=== PATIENT | female | born 1945 | race Caucasian/White ===

== ENCOUNTER 2017-03-12 08:57 | Day surgery (SDC) | payer MEDICAID, MEDICARE ==
[~2017-03-12 08:57] MED LIST: Cefuroxime 10 MG/ML SYRINGE EYERT SCH; Lidocaine 1% PF 2 ML SDV INJECT SCH; Pilocarpine 4% Ophth Soln 15 ML Bot EYERT SCH
[2017-03-12] MEDS: Polymyxin B/Trimethoprim 10 ML Bottle EYERT SCH ×3 (09:42→11:18)
[2017-03-12] MEDS: Brimonidine 0.2% Ophth Soln 5 ML Bottle EYERT SCH ×3 (09:47→11:18)
[2017-03-12] MEDS: Phenylephrine 2.5% Ophth Soln 2 ML Bot EYERT SCH ×5 (09:52→10:55)
--- NOTE | 2017-03-12 10:10 | PCM.PREANE ---
Preanesthetic Assessment - Procedure Proposed Procedure: Right eye cataract extraction with IOL - Anesthesia/Transfusion/Family Hx Anesthesia History: Prior Anesthesia Reaction Type of Anesthesia Reaction: Excessive Somnolence (from appendectomy 50+ years ago) Family History of Anesthesia Reaction: No Transfusion History: No Prior Transfusion(s) - Review of Systems General: No Symptoms Pulmonary: Shortness of Breath Cardiovascular: Other (HTN) Gastrointestinal: No Symptoms Neurological: No Symptoms Other: Reports: None - Physical Assessment NPO Status Date: 03/11/17 NPO Status Time: 22:00 O2 Sat by Pulse Oximetry: 93 Respiratory Rate: 20 Vital Signs: Last Vital Signs Temp 36.7 C 03/12/17 09:35 Pulse 64 03/12/17 09:35 Resp 20 03/12/17 09:35 BP 153/73 H 03/12/17 09:35 Pulse Ox 93 L 03/12/17 09:35 Height: 1.5 m Weight: 102.965 kg ASA Class: 2 Mental Status: Alert & Oriented x3 Dentition: Reports: Missing Tooth/Teeth (edentulous) Thyro-Mental Finger Breadths: 3 Mouth Opening Finger Breadths: 3 ROM/Head Extension: Full Lungs: Clear to Auscultation, Normal Respiratory Effort Cardiovascular: Regular Rate, Regular Rhythm - Allergies Allergies/Adverse Reactions: Allergies Allergy/AdvReac Type Severity Reaction Status Date / Time coconut Allergy Cannot Verified 03/11/17 12:02 Remember perfume Allergy Cannot Verified 03/11/17 12:02 Remember pollen extracts Allergy Cannot Verified 03/11/17 12:02 Remember dust Allergy Cannot Uncoded 03/11/17 12:02 Remember hayfever Allergy Cannot Uncoded 03/11/17 12:02 Remember - Blood Blood Available: No Product(s) Available: None - Anesthesia Plan Pre-Op Medication Ordered: None - Acknowledgements Anesthesia Type Planned: MAC Pt an Appropriate Candidate for the Planned Anesthesia: Yes Alternatives and Risks of Anesthesia Discussed w Pt/Guardian: Yes Pt/Guardian Understands and Agrees with Anesthesia Plan: Yes PreAnesthesia Questionnaire - SUBSTANCE USE Smoking Status *Q: Current Every Day Smoker (0.5ppd for 20 years) Tobacco Use Within Last Twelve Months: Cigarettes Second Hand Smoke Exposure: No Recreational Drug Use History: No - HOME MEDS Home Medications: Home Meds Aspirin [Halfprin] 81 mg PO DAILY 03/11/17 [History] Levothyroxine [Synthroid] 50 mcg PO DAILY 03/11/17 [History] Lisinopril [Lisinopril] 20 mg PO DAILY 03/11/17 [History] Sertraline HCl [Sertraline HCl] 50 mg PO DAILY 03/11/17 [History] - CURRENT (IN HOUSE) MEDS Current Meds: Current Medications Brimonidine Tartrate (Alphagan 0.2% Ophth Soln) 0 ml EYERT ASDIRECTED MELY Stop: 03/12/17 18:00 Last Admin: 03/12/17 09:47 Dose: 1 drop Cefuroxime Sodium (Zinacef) 0 mg EYERT ASDIRECTED MELY Stop: 03/12/17 18:00 Lidocaine HCl (Xylocaine-Mpf 1%) 10 ml INJECT ASDIRECTED MELY Stop: 03/12/17 18:00 Phenylephrine HCl (Conner-Synephrine 2.5% Ophth Soln) 0 ml EYERT ASDIRECTED MELY Stop: 03/12/17 18:00 Last Admin: 03/12/17 09:52 Dose: 1 drop Pilocarpine HCl (Pilocar 4% Ophth Soln) 0 ml EYERT ASDIRECTED MELY Stop: 03/12/17 18:00 Polymyxin/Trimethoprim Sulfate (Polytrim Ophth Soln) 0 ml EYERT ASDIRECTED MELY Stop: 03/12/17 18:00 Last Admin: 03/12/17 09:42 Dose: 1 drop Tetracaine HCl (Tetracaine 0.5% Steri-Unit Angy) 0 ml EYERT ASDIRECTED MELY Stop: 03/12/17 18:00 Tropicamide (Mydriacyl 1% Ophth Soln) 0 ml EYERT ASDIRECTED MELY Stop: 03/12/17 18:00 Last Admin: 03/12/17 09:57 Dose: 1 drop
[2017-03-12] MEDS: Tetracaine HCl/PF 0.5% 4 ML Bottle EYERT SCH ×4 (10:48→11:04)
--- NOTE | 2017-03-12 11:20 | PCM48HPAN ---
Post Anesthesia Note - EVALUATION WITHIN 48HRS OF ANESTHETIC Vital Signs in Normal Range: Yes Patient Participated in Evaluation: Yes Respiratory Function Stable: Yes Airway Patent: Yes Cardiovascular Function Stable: Yes Hydration Status Stable: Yes Pain Control Satisfactory: Yes Nausea and Vomiting Control Satisfactory: Yes Mental Status Recovered: Yes
== END 2017-03-12 11:30 | disposition home or self-care (01) ==
LOC: JD.SDS 08:57
PROVIDERS: ATTEND Ophthalmology
DX: H25.89 Other age-related cataract (principal); H16.103 Unspecified superficial keratitis, bilateral; H16.223 Keratoconjunctivitis sicca, not specified as Sjogren's, bilateral; H02.831 Dermatochalasis of right upper eyelid; H02.834 Dermatochalasis of left upper eyelid; H21.81 Floppy iris syndrome; I10 Essential (primary) hypertension; F17.210 Nicotine dependence, cigarettes, uncomplicated; F41.9 Anxiety disorder, unspecified; Z90.49 Acquired absence of other specified parts of digestive tract; Z98.890 Other specified postprocedural states; Z79.82 Long term (current) use of aspirin; Z79.899 Other long term (current) drug therapy; Z91.018 Allergy to other foods; Z91.048 Other nonmedicinal substance allergy status
CPT/HCPCS: 66984; A9270; C1780; J0697

== ENCOUNTER 2017-04-23 07:59 | Day surgery (SDC) | payer MEDICARE, MEDICAID ==
[~2017-04-23 07:59] MED LIST changes: +Cefuroxime 10 MG/ML SYRINGE EYELF SCH; -Cefuroxime 10 MG/ML SYRINGE EYERT SCH; +Pilocarpine 4% Ophth Soln 15 ML Bot EYELF SCH; -Pilocarpine 4% Ophth Soln 15 ML Bot EYERT SCH
[2017-04-23] MEDS: Polymyxin B/Trimethoprim 10 ML Bottle EYELF SCH ×3 (08:12→09:58)
[2017-04-23] MEDS: Brimonidine 0.2% Ophth Soln 5 ML Bottle EYELF SCH ×3 (08:16→09:58)
[2017-04-23] MEDS: Phenylephrine 2.5% Ophth Soln 2 ML Bot EYELF SCH ×5 (08:19→09:44)
--- NOTE | 2017-04-23 08:55 | PCM.PREANE ---
Preanesthetic Assessment - Anesthesia/Transfusion/Family Hx Anesthesia History: Prior Anesthesia Without Reaction Family History of Anesthesia Reaction: No Transfusion History: No Prior Transfusion(s) Intubation History: Unknown - Review of Systems General: No Symptoms Pulmonary: Shortness of Breath, Cough Cardiovascular: No Symptoms (HTN), Palpitations (only with anxiety), Dyspnea on Exertion Gastrointestinal: No Symptoms (GERD) Neurological: No Symptoms Other: Reports: Thyroid Problems (hypothyroid), Anxiety - Physical Assessment NPO Status Date: 04/22/17 NPO Status Time: 21:30 Pulse: 66 O2 Sat by Pulse Oximetry: 92 Respiratory Rate: 20 Blood Pressure: 157/79 Temperature: 36.4 C Vital Signs: Last Vital Signs Temp 36.4 C 04/23/17 08:05 Pulse 66 04/23/17 08:05 Resp 20 04/23/17 08:05 BP 157/79 H 04/23/17 08:05 Pulse Ox 92 L 04/23/17 08:05 Height: 1.5 m Weight: 90.718 kg ASA Class: 3 Mental Status: Alert & Oriented x3 Airway Class: Mallampati = 2 Dentition: Reports: Dentures Thyro-Mental Finger Breadths: 3 Mouth Opening Finger Breadths: 3 ROM/Head Extension: Full Lungs: Clear to Auscultation, Normal Respiratory Effort Cardiovascular: Regular Rate, Regular Rhythm, No Murmurs - Allergies Allergies/Adverse Reactions: Allergies Allergy/AdvReac Type Severity Reaction Status Date / Time coconut Allergy Cannot Verified 04/22/17 15:04 Remember perfume Allergy Cannot Verified 04/22/17 15:04 Remember pollen extracts Allergy Cannot Verified 04/22/17 15:04 Remember dust Allergy Cannot Uncoded 04/22/17 15:04 Remember hayfever Allergy Cannot Uncoded 04/22/17 15:04 Remember - Anesthesia Plan Pre-Op Medication Ordered: None - Acknowledgements Anesthesia Type Planned: MAC Pt an Appropriate Candidate for the Planned Anesthesia: Yes Alternatives and Risks of Anesthesia Discussed w Pt/Guardian: Yes Pt/Guardian Understands and Agrees with Anesthesia Plan: Yes PreAnesthesia Questionnaire - SUBSTANCE USE Smoking Status *Q: Current Every Day Smoker (0.5ppd for 20 years) Tobacco Use Within Last Twelve Months: Cigarettes Second Hand Smoke Exposure: No Recreational Drug Use History: No - HOME MEDS Home Medications: Home Meds Aspirin [Halfprin] 81 mg PO DAILY 03/11/17 [History] Levothyroxine [Synthroid] 50 mcg PO DAILY 03/11/17 [History] Lisinopril [Lisinopril] 20 mg PO DAILY 03/11/17 [History] Sertraline HCl [Sertraline HCl] 50 mg PO DAILY 03/11/17 [History] - CURRENT (IN HOUSE) MEDS Current Meds: Current Medications Brimonidine Tartrate (Alphagan 0.2% Ophth Soln) 1 ml EYELF ASDIRECTED MELY Stop: 04/23/17 18:00 Last Admin: 04/23/17 08:16 Dose: 1 drop Cefuroxime Sodium (Zinacef) 0 mg EYELF ASDIRECTED MELY Stop: 04/23/17 18:00 Lidocaine HCl (Xylocaine-Mpf 1%) 10 ml INJECT ASDIRECTED MELY Stop: 04/23/17 18:00 Phenylephrine HCl (Conner-Synephrine 2.5% Ophth Soln) 0 ml EYELF ASDIRECTED MELY Stop: 04/23/17 18:00 Last Admin: 04/23/17 08:43 Dose: 1 drop Pilocarpine HCl (Pilocar 4% Ophth Soln) 0 ml EYELF ASDIRECTED MELY Stop: 04/23/17 18:00 Polymyxin/Trimethoprim Sulfate (Polytrim Ophth Soln) 0 ml EYELF ASDIRECTED MELY Stop: 04/23/17 18:00 Last Admin: 04/23/17 08:12 Dose: 1 drop Tetracaine HCl (Tetracaine 0.5% Steri-Unit Angy) 0 ml EYELF ASDIRECTED MELY Stop: 04/23/17 18:00 Tropicamide (Mydriacyl 1% Ophth Soln) 0 ml EYELF ASDIRECTED MELY Stop: 04/23/17 18:00 Last Admin: 04/23/17 08:47 Dose: 1 drop
[2017-04-23] MEDS: Tetracaine HCl/PF 0.5% 4 ML Bottle EYELF SCH ×2 (09:37→09:47)
== END 2017-04-23 10:14 | disposition home or self-care (01) ==
LOC: JD.SDS 07:59
PROVIDERS: ATTEND Ophthalmology
DX: H25.092 Other age-related incipient cataract, left eye (principal); H21.81 Floppy iris syndrome; H21.40 Pupillary membranes, unspecified eye; J30.1 Allergic rhinitis due to pollen; F41.9 Anxiety disorder, unspecified; F32.9 Major depressive disorder, single episode, unspecified; F17.210 Nicotine dependence, cigarettes, uncomplicated; Z91.018 Allergy to other foods; Z91.048 Other nonmedicinal substance allergy status; Z79.82 Long term (current) use of aspirin; Z79.899 Other long term (current) drug therapy; Z98.890 Other specified postprocedural states; Z96.1 Presence of intraocular lens; Z98.41 Cataract extraction status, right eye
CPT/HCPCS: A9270-GY; C1780

== ENCOUNTER 2024-07-25 12:54 | Inpatient (IN) | payer MEDICARE, MEDICAID ==
[2024-07-25 14:19] LABS: APPEARANCE,URINE SLT CLOUDY (Clear); BILIRUBIN,URINE 1+ (Negative); COLOR,URINE DARK YELLOW (Yellow); GLUCOSE,URINE NEGATIVE (Negative); KETONES,URINE 1+ (Negative); LEUKOCYTE ESTERASE,URINE TRACE (Negative); NITRITE,URINE POSITIVE (Negative); OCCULT BLOOD,URINE 1+ (Negative); PROTEIN,URINE 2+ (Negative)
[2024-07-25 14:21] LABS: BASOPHILS PERCENT AUTO 0.1 % (0.0-1.0); EOSINOPHILS PERCENT AUTO 0.3 % (0.0-6.0); HEMATOCRIT 39.5 % (37.0-47.0); IMMATURE GRAN ABSOLUTE AUTO 0.13 K/mm3 (0.00-0.05); IMMATURE GRAN PERCENT AUTO 0.8 % (0.0-0.4); LYMPHOCYTES ABSOLUTE AUTO 4.6 K/mm3 (1.0-4.8); LYMPHOCYTES PERCENT AUTO 28.8 % (24.0-44.0); MEAN CORPUSCULAR HEMOGLOBIN 31.2 pg (28.0-32.0); MEAN CORPUSCULAR HGB CONC 32.9 g/dl (32.0-36.0); MEAN CORPUSCULAR VOLUME 94.7 fl (83.0-99.0); MEAN PLATELET VOLUME 10.8 fl (9.4-12.3); MONOCYTES ABSOLUTE AUTO 0.5 K/mm3 (0.0-0.8); MONOCYTES PERCENT AUTO 3.2 % (0.0-8.0); NEUTROPHILS ABSOLUTE AUTO 10.6 K/mm3 (1.8-7.7); NEUTROPHILS PERCENT AUTO 66.8 % (41.0-71.0); NRBC ABSOLUTE 0.03 (0.00-0.02); NRBC PERCENT 0.2 % (0.0-0.2); PLATELET COUNT,PLT 212 K/mm3 (150-400); RED BLOOD CELL COUNT 4.17 M/mm3 (4.10-5.30); WHITE BLOOD CELL COUNT,WBC 15.88 K/mm3 (3.9-11.3)
[2024-07-25 14:27] LABS: BACTERIA,URINE MANY /hpf (FEW); EPITHELIAL CELLS,URINE 0-5 /hpf (0-5); MUCUS,URINE NOT SEEN /hpf (FEW); RBC,URINE 0-5 /hpf (0-5)
[2024-07-25 14:28] LABS: HYALINE CASTS,URINE 0-5 /lpf (0-5)
[2024-07-25] MEDS: Sodium Chloride 0.9% 1,000 ML IV ONE ×2 (14:39→17:28)
[2024-07-25] MEDS: Piperacillin/Tazobactam 4.5 GM in Sodium Chloride 0.9% 100 ML IV ONE (14:42)
[2024-07-25] MEDS: Sodium Chloride 0.9% 10 ML Syringe FLUSH PRN (14:45)
[2024-07-25 14:56] LABS: A/G RATIO 0.3 (1-2); ALBUMIN 1.4 g/dl (3.4-5.0); ALKALINE PHOSPHATASE 114 U/L (46-116); ANION GAP 10.2 (5-15); ASPARTATE AMNIOTRANSFERASE,AST 29 U/L (15-37); BILIRUBIN TOTAL 1.7 mg/dL (0.2-1.0); BLOOD UREA NITROGEN,BUN 14 mg/dL (7-18); BUN/CREATININE RATIO 15.6 (14-18); C-REACTIVE PROTEIN 16.82 mg/dL (<0.30); CALCIUM 8.2 mg/dL (8.5-10.1); CARBON DIOXIDE,CO2 30 mEq/L (21-32); CHLORIDE,CL 101 mEq/L (98-107); CREATININE 0.9 mg/dL (0.55-1.02); ESTIMATED GFR 66 mL/min (>60); GLUCOSE RANDOM 136 mg/dL (70-99); MAGNESIUM 1.6 mg/dL (1.8-2.4); POTASSIUM,K 3.2 mEq/L (3.5-5.1); PROTEIN TOTAL,TP 6.9 g/dl (6.4-8.2); SODIUM,NA 138 mEq/L (136-145)
[2024-07-25 15:10] LABS: TSH 3.963 uIU/mL (0.358-3.74)
[2024-07-25 15:25] LABS: LACTIC ACID 2.6 mmol/L (0.4-2.0)
[2024-07-25 15:28] LABS: ALANINE AMINOTRANSFERASE,ALT 6 U/L (14-59)
[2024-07-25 15:56] LABS: T4 FREE 2.02 ng/dL (0.76-1.46)
[2024-07-25] MEDS: Potassium Chloride 10 MEQ in Premix Bag 1 BAG IV ONE (17:28)
[2024-07-25] MEDS: Potassium Chloride 20 MEQ Tab.ER PO ONE (17:28)
[2024-07-25 18:22] LABS: SLIDE REVIEW ABNORMAL SMEAR
[2024-07-25] MEDS: Piperacillin/Tazobactam 4.5 GM in Sodium Chloride 0.9% 100 ML IV SCH ×2 (19:56→20:29)
[2024-07-26] MEDS ORDERED: Lactated Ringers 1,000 ML IV SCH (08:45)
[2024-07-26] MEDS ORDERED: Ondansetron 4 MG/2 ML SDV IV PRN (10:21)
[2024-07-26] MEDS: Sodium Chloride 0.9% 1,000 ML IV SCH (11:46)
[2024-07-26] MEDS: Albuterol/Ipratropium 3.0-0.5 MG/3 ML Neb Soln NEB SCH (11:46)
[2024-07-26] MEDS: Nystatin Crm 30 GM Tube TOP SCH (22:06)
[2024-07-27] MEDS: Sodium Chloride 0.9% 1,000 ML IV SCH (04:07)
[2024-07-27 05:31] LABS: HEMATOCRIT 33.2 % (37.0-47.0); MEAN CORPUSCULAR HEMOGLOBIN 31.7 pg (28.0-32.0); MEAN CORPUSCULAR HGB CONC 32.8 g/dl (32.0-36.0); MEAN CORPUSCULAR VOLUME 96.5 fl (83.0-99.0); MEAN PLATELET VOLUME 10.9 fl (9.4-12.3); PLATELET COUNT,PLT 161 K/mm3 (150-400); RED BLOOD CELL COUNT 3.44 M/mm3 (4.10-5.30); WHITE BLOOD CELL COUNT,WBC 10.73 K/mm3 (3.9-11.3)
[2024-07-27 05:34] LABS: HEMOGLOBIN 10.9 gm/dl (12.0-16.0)
[2024-07-27 05:46] LABS: A/G RATIO 0.2 (1-2); ALANINE AMINOTRANSFERASE,ALT 6 U/L (14-59); ALKALINE PHOSPHATASE 91 U/L (46-116); ANION GAP 8.4 (5-15); ASPARTATE AMNIOTRANSFERASE,AST 22 U/L (15-37); BILIRUBIN TOTAL 1.2 mg/dL (0.2-1.0); BLOOD UREA NITROGEN,BUN 9 mg/dL (7-18); BUN/CREATININE RATIO 11.3 (14-18); C-REACTIVE PROTEIN 12.38 mg/dL (<0.30); CALCIUM 7.5 mg/dL (8.5-10.1); CARBON DIOXIDE,CO2 30 mEq/L (21-32); CHLORIDE,CL 104 mEq/L (98-107); CREATININE 0.8 mg/dL (0.55-1.02); ESTIMATED GFR 76 mL/min (>60); GLUCOSE RANDOM 110 mg/dL (70-99); PROTEIN TOTAL,TP 5.5 g/dl (6.4-8.2); SODIUM,NA 140 mEq/L (136-145)
[2024-07-27 05:59] LABS: POTASSIUM,K 2.4 mEq/L (3.5-5.1)
[2024-07-27 06:01] LABS: HEPATITIS C AB NON-REACTIVE (Non-React)
[2024-07-27 06:02] LABS: HIV RAPID SCREEN RLFX COMFIRM NON-REACTIVE (Non-React)
[2024-07-27] MEDS: Potassium Chloride 20 MEQ Tab.ER PO ONE (06:24)
[2024-07-27] MEDS: Magnesium Sulfat/D5W 1GM/100ML 1 GM in Premix Bag 1 BAG IV SCH (06:27)
[2024-07-27] MEDS: Potassium Chloride 10 MEQ in Premix Bag 1 BAG IV SCH ×2 (06:28→16:58)
[2024-07-27] MEDS: Acetaminophen 325 MG Tab PO PRN (08:29)
[2024-07-27] MEDS: Enoxaparin 40 MG/0.4 ML Syringe SUBCUT SCH (08:53)
[2024-07-27 10:11] LABS: MAGNESIUM 1.4 mg/dL (1.8-2.4); PHOSPHORUS 2.5 mg/dL (2.6-4.7)
[2024-07-27] MEDS ORDERED: Potassium Phosphates 30 MMOLE in Sodium Chloride 0.9% 500 ML IV ONE (12:00)
[2024-07-27] MEDS: Piperacillin/Tazobactam 4.5 GM in Sodium Chloride 0.9% 100 ML IV SCH (13:05)
[2024-07-27] MEDS: Magnesium Sulf/Wat 4 GM/50 mL 4 GM in Premix Bag 1 BAG IV ONE (13:06)
[2024-07-27] MEDS: Potassium Phosphates 15 MMOLE in Sodium Chloride 0.9% 250 ML IV ONE (14:26)
[2024-07-28 04:45] LABS: HEMATOCRIT 32.7 % (37.0-47.0); HEMOGLOBIN 11.1 gm/dl (12.0-16.0); MEAN CORPUSCULAR HEMOGLOBIN 31.7 pg (28.0-32.0); MEAN CORPUSCULAR HGB CONC 33.9 g/dl (32.0-36.0); MEAN CORPUSCULAR VOLUME 93.4 fl (83.0-99.0); PLATELET COUNT,PLT 189 K/mm3 (150-400); WHITE BLOOD CELL COUNT,WBC 11.29 K/mm3 (3.9-11.3)
[2024-07-28 05:07] LABS: A/G RATIO 0.2 (1-2); ALBUMIN 0.9 g/dl (3.4-5.0); ANION GAP 12.5 (5-15); BILIRUBIN TOTAL 0.9 mg/dL (0.2-1.0); C-REACTIVE PROTEIN 10.55 mg/dL (<0.30); CALCIUM 7.4 mg/dL (8.5-10.1); CREATININE 0.8 mg/dL (0.55-1.02); EST CRCL DRUG DOSING (CG) 42.3 mL/min; MAGNESIUM 2.2 mg/dL (1.8-2.4); PHOSPHORUS 1.5 mg/dL (2.6-4.7); POTASSIUM,K 3.5 mEq/L (3.5-5.1); PROTEIN TOTAL,TP 5.4 g/dl (6.4-8.2)
[2024-07-28] MEDS: Loperamide 2 MG Cap PO ONE (08:51)
[2024-07-28] MEDS: Potassium Phosphates 30 MMOLE in Sodium Chloride 0.9% 500 ML IV ONE (08:53)
[2024-07-28] MEDS: Potassium Chloride 10 MEQ in Premix Bag 1 BAG IV SCH (13:57)
[2024-07-29 04:38] LABS: HEMATOCRIT 32.4 % (37.0-47.0); HEMOGLOBIN 10.8 gm/dl (12.0-16.0); MEAN CORPUSCULAR HEMOGLOBIN 31.5 pg (28.0-32.0); MEAN CORPUSCULAR HGB CONC 33.3 g/dl (32.0-36.0); MEAN CORPUSCULAR VOLUME 94.5 fl (83.0-99.0); MEAN PLATELET VOLUME 10.6 fl (9.4-12.3); PLATELET COUNT,PLT 187 K/mm3 (150-400); RED BLOOD CELL COUNT 3.43 M/mm3 (4.10-5.30); WHITE BLOOD CELL COUNT,WBC 10.13 K/mm3 (3.9-11.3)
[2024-07-29 05:12] LABS: A/G RATIO 0.2 (1-2); ALBUMIN 0.9 g/dl (3.4-5.0); ANION GAP 9.2 (5-15); BUN/CREATININE RATIO 21.4 (14-18); C-REACTIVE PROTEIN 9.51 mg/dL (<0.30); CALCIUM 7.7 mg/dL (8.5-10.1); CREATININE 0.7 mg/dL (0.55-1.02); EST CRCL DRUG DOSING (CG) 48.34 mL/min; MAGNESIUM 1.7 mg/dL (1.8-2.4); POTASSIUM,K 4.2 mEq/L (3.5-5.1); PROTEIN TOTAL,TP 5.5 g/dl (6.4-8.2)
[2024-07-29] MEDS: Magnesium Sulf/Wat 2 GM/50 mL 2 GM in Premix Bag 1 BAG IV ONE (09:40)
[2024-07-29] MEDS: Loperamide 2 MG Cap PO PRN (12:06)
[2024-07-29] MEDS: Sodium Phosphate 30 MMOLE in Sodium Chloride 0.9% 250 ML IV ONE (12:52)
[2024-07-29] MEDS ORDERED: Sodium Phosphate 30 MMOLE in Sodium Chloride 0.9% 250 ML IV ONE (17:30)
[2024-07-29 20:47] LABS: HEP B SURFACE AG Negative (Negative)
[2024-07-29 22:26] LABS: FOLIC ACID 1.5 ng/mL (8.6-58.9)
[2024-07-30 04:24] LABS: HEMATOCRIT 32.9 % (37.0-47.0); HEMOGLOBIN 11.1 gm/dl (12.0-16.0); MEAN CORPUSCULAR HEMOGLOBIN 31.4 pg (28.0-32.0); MEAN CORPUSCULAR HGB CONC 33.7 g/dl (32.0-36.0); MEAN CORPUSCULAR VOLUME 92.9 fl (83.0-99.0); MEAN PLATELET VOLUME 10.2 fl (9.4-12.3); NRBC ABSOLUTE 0.02 (0.00-0.02); NRBC PERCENT 0.2 % (0.0-0.2); PLATELET COUNT,PLT 180 K/mm3 (150-400); RED BLOOD CELL COUNT 3.54 M/mm3 (4.10-5.30); WHITE BLOOD CELL COUNT,WBC 10.48 K/mm3 (3.9-11.3)
[2024-07-30 04:55] LABS: A/G RATIO 0.2 (1-2); ALBUMIN 0.9 g/dl (3.4-5.0); BILIRUBIN TOTAL 1.1 mg/dL (0.2-1.0); BUN/CREATININE RATIO 27.1 (14-18); C-REACTIVE PROTEIN 10.54 mg/dL (<0.30); CALCIUM 7.7 mg/dL (8.5-10.1); CREATININE 0.7 mg/dL (0.55-1.02); EST CRCL DRUG DOSING (CG) 48.34 mL/min; MAGNESIUM 1.9 mg/dL (1.8-2.4); PHOSPHORUS 2.9 mg/dL (2.6-4.7); PROTEIN TOTAL,TP 5.5 g/dl (6.4-8.2)
[2024-07-30 07:55] LABS: BASE EXCESS ARTERIAL 5.4 (-2-2.0); BICARBONATE,ARTERIAL 29 meq/L (22.0-26.0); O2 SATURATION ARTERIAL 96.9 % (96.0-97.0)
[2024-07-30] MEDS: Phosphorus #1 250 MG Tab PO ONE (08:05)
[2024-07-30] MEDS: Thiamine 100 MG Tab PO SCH (08:06)
[2024-07-30] MEDS: Cholecalciferol (Vitamin D3) 5,000 UNIT Cap PO SCH (08:06)
[2024-07-30] MEDS: Folic Acid 1 MG Tab PO SCH (08:06)
[2024-07-30] MEDS: Albuterol/Ipratropium 3.0-0.5 MG/3 ML Neb Soln NEB SCH (09:06)
[2024-07-30] MEDS ORDERED: Albumin 25% 12.5 GM/50 ML Bag IV ONE (09:52)
[2024-07-30] MEDS: Furosemide 20 MG/2 ML VIAL IVPUSH ONE (10:04)
[2024-07-30] MEDS: Magnesium Sulf/Wat 2 GM/50 mL 2 GM in Premix Bag 1 BAG IV ONE (10:05)
[2024-07-30] MEDS: Sodium Chloride 0.9% 100 ML IV SCH (11:43)
[2024-07-30] MEDS: Iopamidol 755 Mg/ML 100 ML Bottle IVPUSH ONE (11:43)
[2024-07-30] MEDS: Sodium Chloride 0.9% 10 ML Syringe FLUSH PRN (11:43)
[2024-07-30] MEDS: Albumin 25% 50 ML IV SCH ×2 (12:28→13:32)
[2024-07-30] MEDS: VANCOmycin 1 GM in Sodium Chloride 0.9% 250 ML IV SCH (12:37)
[2024-07-30] MEDS: Albuterol 0.083% 2.5 MG/3 ML Neb Soln NEB PRN (12:39)
== END 2024-07-30 15:15 | DRG 871 ==
LOC: JD.ED 12:54 → JD.MS 07-26 07:57
PROVIDERS: ADMIT Internal Medicine; ATTEND Student in an Organized Health Care Education/Training Program
DX: A41.51 Sepsis due to Escherichia coli [E. coli] (principal); J18.9 Pneumonia, unspecified organism; Z91.048 Other nonmedicinal substance allergy status; J96.01 Acute respiratory failure with hypoxia; J44.0 Chronic obstructive pulmonary disease with (acute) lower respiratory infection; T74.01XA Adult neglect or abandonment, confirmed, initial encounter; N39.0 Urinary tract infection, site not specified; R18.8 Other ascites; R65.20 Severe sepsis without septic shock; F03.C0 Unspecified dementia, severe, without behavioral disturbance, psychotic disturbance, mood disturbance, and anxiety; E03.9 Hypothyroidism, unspecified; I10 Essential (primary) hypertension; R62.7 Adult failure to thrive; E87.6 Hypokalemia; E53.8 Deficiency of other specified B group vitamins; L89.319 Pressure ulcer of right buttock, unspecified stage; L98.499 Non-pressure chronic ulcer of skin of other sites with unspecified severity; E83.42 Hypomagnesemia; E83.39 Other disorders of phosphorus metabolism; R19.7 Diarrhea, unspecified; Z91.018 Allergy to other foods; Z88.9 Allergy status to unspecified drugs, medicaments and biological substances; Z91.09 Other allergy status, other than to drugs and biological substances
CPT/HCPCS: 36415; 71045; 80053; 81001; 83605 ×2; 83735; 84439; 84443; 85025; 86140; 87040 ×2; 87086; 87088; 87186; 87641; 93005; 96361 ×2; 96365; 96367; 99285; A9270; J2543 ×3; J3480; J7030 ×2; 36600; 70450; 70450-26; 71275; 71275-26; 82306; 82607; 82746; 82803; 83880; 84100; 84132; 85027; 86803; 87045; 87046; 87340; 87493; 87899; 92523-GN; 94640; 94667; 94668; 94761; 97110-GP; 97161-GP; 97166-GO; 97530-GO; 97530-GP; 97535-GO; 97597-GP; G0433; J1650; J1940; J3475; J3490; J7040; J7613-GY; J7620-GY; P9047; Q9967